=== PATIENT | male | born 1950 | race Caucasian/White ===

== ENCOUNTER → 2017-02-03 | Outpatient (CLI) | payer OTHER ==
[~2017-02-03] MED LIST: ASPI81TA28 PO; ATOR10TA88 PO; CALCTAB5 PO; CETI10TA84 PO; FLM4 PO; GLUC250C PO; MULT-506 PO; NAPR1TAB9 PO; OLME1TAB11 PO; OMEG10007 PO; SILD100T PO; [UNRECOGNIZED DRUG - CODE] PO
--- NOTE | 2017-02-03 08:48 | DIAGNOSTIC IMAGING REPORT ---
BILATERAL KNEES, 4 VIEWS EACH CLINICAL HISTORY: Bilateral knee pain. COMPARISON STUDY: Right knee 03/21/2015. Left knee 11/25/2014. FINDINGS: No fracture or dislocation within the right or left knee. Moderate cartilage space narrowing within the medial compartments of the knees with small tricompartmental marginal osteophytes, left greater than right. This has progressed in the interval. No significant knee effusion. Soft tissues are unremarkable. There is also moderate osteoarthritis at the left patellofemoral joint. IMPRESSION: Moderate osteoarthritis within the bilateral knees, left greater than right. This has progressed. Electronically signed by: Demian Pratt M.D. 02/03/2017 8:46 AM Dictated Date/Time: 02/03/2017 8:44 AM
== END | disposition home or self-care (01) ==
LOC: C.RDSM 07:00
PROVIDERS: ATTEND Internal Medicine
DX: M25.561 Pain in right knee (principal); M25.562 Pain in left knee; M17.0 Bilateral primary osteoarthritis of knee

== ENCOUNTER → 2017-03-17 | Outpatient (CLI) | payer OTHER ==
[~2017-03-17] VITALS: Ht 180.3 cm; Wt 127.5 kg
[~2017-03-17] MED LIST changes: +ATOR10TA82 PO; -ATOR10TA88 PO
[2017-03-17 13:36] VITALS: BP 124/79; PULSE 80; Ht 180.3 cm; Wt 127.5 kg
== END | disposition home or self-care (01) ==
LOC: C.NEUR 13:10
PROVIDERS: ATTEND Physician Assistant
DX: G47.33 Obstructive sleep apnea (adult) (pediatric) (principal)

== ENCOUNTER → 2017-04-24 | Outpatient (CLI) | payer OTHER ==
[2017-04-24 11:08] LABS: ESTIMATED AVERAGE GLUCOSE 114 mg/dl; HA1C FLAG Normal (Normal)
[2017-04-24 11:24] LABS: ALT/SGPT 52 U/L (12-78); BLOOD UREA NITROGEN 19 mg/dl (7-18); BUN/CREATININE RATIO 21.2 (10-20); CALCIUM 8.5 mg/dl (8.5-10.1); CARBON DIOXIDE 26 mmol/L (21-32); CHLORIDE 108 mmol/L (98-107); CHOLESTEROL 135 mg/dl (0-200); CHOLESTEROL/HDL RATIO 4.4; CREATININE 0.88 mg/dl (0.60-1.40); GLUCOSE 105 mg/dl (70-99); HDL CHOLESTEROL 31 mg/dl; LDL CHOLESTEROL CALCULATED 56 mg/dl; POTASSIUM 4.6 mmol/L (3.5-5.1); SODIUM 143 mmol/L (136-145); TRIGLYCERIDES 242 mg/dl (0-150); VERY LOW DENSITY LIPOPROT CALC 48 mg/dl
== END | disposition home or self-care (01) ==
LOC: C.LAB1850 09:02
PROVIDERS: ATTEND Family Medicine
DX: Z11.59 Encounter for screening for other viral diseases (principal); I10 Essential (primary) hypertension; E78.5 Hyperlipidemia, unspecified; R73.9 Hyperglycemia, unspecified

== ENCOUNTER → 2017-09-25 | Outpatient (CLI) | payer OTHER ==
[~2017-09-25] VITALS: Ht 180.3 cm; Wt 126.6 kg
[2017-09-25 13:47] VITALS: BP 118/77; PULSE 80; Ht 180.3 cm; Wt 126.6 kg
== END | disposition home or self-care (01) ==
LOC: C.NEUR 13:17
PROVIDERS: ATTEND Physician Assistant
DX: G47.33 Obstructive sleep apnea (adult) (pediatric) (principal)

== ENCOUNTER → 2017-12-01 | Outpatient (CLI) | payer OTHER ==
[2017-12-01 10:18] LABS: HEMOGLOBIN A1C 5.6 % (4.5-5.6)
[2017-12-01 10:32] LABS: ALT/SGPT 55 U/L (12-78); BLOOD UREA NITROGEN 15 mg/dl (7-18); CALCIUM 8.7 mg/dl (8.5-10.1); CARBON DIOXIDE 26 mmol/L (21-32); GLUCOSE 101 mg/dl (70-99); POTASSIUM 3.9 mmol/L (3.5-5.1); SODIUM 137 mmol/L (136-145)
[2017-12-01 10:34] LABS: CHOLESTEROL 125 mg/dl (0-200); LDL CHOLESTEROL CALCULATED 57 mg/dl
== END ==
LOC: C.LAB1850 08:38
PROVIDERS: ATTEND Family Medicine
DX: I10 Essential (primary) hypertension (principal); E78.5 Hyperlipidemia, unspecified; R73.9 Hyperglycemia, unspecified

== ENCOUNTER → 2018-06-17 | Outpatient (CLI) | payer OTHER ==
[~2018-06-17] MED LIST changes: -ASPI81TA28 PO; +BNC/20 PO; +CALC-393 PO; -CALCTAB5 PO; -FLM4 PO; -OLME1TAB11 PO
[2018-06-17 09:51] LABS: HEMOGLOBIN A1C 5.8 % (4.5-5.6)
[2018-06-17 09:59] LABS: ALBUMIN 3.6 gm/dl (3.4-5.0); ALKALINE PHOSPHATASE 55 U/L (45-117); ALT/SGPT 43 U/L (12-78); AST/SGOT 15 U/L (15-37); BLOOD UREA NITROGEN 12 mg/dl (7-18); CALCIUM 8.3 mg/dl (8.5-10.1); CARBON DIOXIDE 27 mmol/L (21-32); CHOLESTEROL 123 mg/dl (0-200); CREATININE 0.82 mg/dl (0.60-1.40); GLUCOSE 103 mg/dl (70-99); LDL CHOLESTEROL CALCULATED 61 mg/dl; POTASSIUM 4.3 mmol/L (3.5-5.1); SODIUM 140 mmol/L (136-145); TOTAL PROTEIN 6.8 gm/dl (6.4-8.2)
== END | disposition home or self-care (01) ==
LOC: C.LAB1850 07:57
PROVIDERS: ATTEND Family Medicine
DX: Z00.00 Encounter for general adult medical examination without abnormal findings (principal); Z12.5 Encounter for screening for malignant neoplasm of prostate; I10 Essential (primary) hypertension; E78.5 Hyperlipidemia, unspecified; R73.9 Hyperglycemia, unspecified

== ENCOUNTER 2025-09-14 09:09 | Observation (INO) ==
[2025-09-14] MEDS: ONDANSETRON INJ 2 MG/ML 2 ML VIAL IV STA (09:48)
[2025-09-14] MEDS: SODIUM CHLORIDE 0.9% 500 ML IV ONE (09:48)
--- NOTE | 2025-09-14 09:58 | Emergency Department Note ---
Impression & Plan Stroke-like symptoms, Dizziness, Nausea ED Provider Note HISTORY OF PRESENT ILLNESS: Patient is a 75-year-old male presenting with gait instability and dizziness. Patient reports that he woke up at 6 AM to go to the bathroom this morning and had significant difficulties ambulating secondary to feeling unsteady on his feet. He states he had chills and felt like he could not walk. He states he also woke up and had blurred vision. He reports that he has significant fuzziness to his entire visual field. He reports he went to bed last night without any symptoms at 2100. He is not on any anticoagulation or antiplatelet therapy. Denies any chest pain or shortness of breath. He reports he is significantly nauseous this morning with the symptoms and has had multiple episodes of dry heaving. Denies any abdominal pain. ROS: as above PHYSICAL EXAM: Constitutional: Patient appears in no acute distress. HENT: Head: Normocephalic and atraumatic. Eyes: EOMI, PERRL. Patient noted to have bilateral rotary nystagmus on examination. Mouth/Throat: Mucous membranes moist. Neck: Trachea midline. Neck supple. Cardiovascular: RRR, No murmurs, rubs or gallops. Intact distal pulses. Pulmonary/Chest: No respiratory distress. Breath sounds clear and equal bilaterally. No wheezes or rales. Abdominal: Abdomen soft, no tenderness, rebound or guarding. Musculoskeletal: No edema, tenderness or deformity noted. Skin: Warm and dry. No rash, erythema, pallor or cyanosis Psychiatric: Appropriate mood and affect for situation. Neurological: Alert and keenly responsive. Facies symmetric. Able to raise eyebrows, close eyes, smile, puff mouth, stick out tongue, move tongue left and right and raise palate symmetrically. Able to shrug shoulders. PERRLA. SILT to forehead below eye and at jawline. Can hear soft noise bilaterally. Good finger to nose. Strength 5/5 in bilateral upper and lower extremities. SILT throughout bilateral upper and lower extremities. MDM: - Vitals signs showed hypertension - History obtained via patient. History as above. - Chronic conditions affecting care: HTN; HLD; BPH - Differential diagnoses include, but are not limited to: CVA; intracranial hemorrhage; ACS; electrolyte abnormality; dysrhythmia - Order placed for continuous cardiac monitoring. At this time, monitor showed rate of 64 bpm with normal sinus rhythm, per my interpretation. - External medical records reviewed. Wellness visit note dated 08/11/2025 was reviewed. Patient was seen for his regular wellness exam. He was started on MiraLAX at the visit. - EKG image interpreted by myself showed normal sinus rhythm. Rate 61 bpm. QT 460. No acute ischemic changes. Noted to have a right bundle branch block. - Laboratory workup interpreted by myself showed normal WBC; normal PT/INR; stable electrolytes; normal troponin; normal AST/ALT - CXR image reviewed by myself is negative for pneumonia, per my interpretation. - Viral respiratory panel negative - CT head wo contrast negative for acute pathology - CTA head negative for acute pathology. 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 - Patient given 500 cc NS and 4 mg IV zofran in ER. - On reassessment, the patient is still feeling nauseous. I did stand him at bedside and he started to fall to the left after standing for about 10 seconds. He does continue to have rotary nystagmus on examination. I ordered 0.5 mg of IV Ativan. I do still have some significant concerns about a potential posterior circulation stroke at this point. Given the patient's persistent symptoms, will admit for further workup. Patient given 324 mg of aspirin and 300 mg of Plavix. - Discussion was had with case advocate about patient's case and need for admission - Hospitalist, Dr. Singh, consulted for admission at 13:11. - [facility] ASSESSMENT AND PLAN: Diagnosis: Strokelike symptoms; dizziness; nausea Plan: Admit Past Med/Surg History Problem List (Updated 09/14/25 @ 13:12 by Sheryl Delarosa MD) Nausea (Acute) Dizziness (Acute) Stroke-like symptoms (Acute) Encounter for pre-operative examination Constipation Abdominal bloating Sciatic nerve pain Pyriformis syndrome Lumbar spondylosis Lumbosacral radiculitis Upper airway cough syndrome Sinus congestion Chronic cough Lumbar radiculopathy History of colon polyps Family history of colon cancer Lumbar strain Severe obstructive sleep apnea cpap Post-nasal drip Arthritis (Chronic) Benign localized hyperplasia of prostate with urinary obstruction (Chronic) Chronic back pain (Chronic) Erectile dysfunction (Chronic) Hyperglycemia (Chronic) Hyperlipidemia (Chronic) Lumbar back pain (Chronic) strain of quadratus lumborum Nocturia (Chronic) Obesity (Chronic) Pes planus (Chronic) 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) Hypertension (Chronic) Medical History HTN (hypertension) Sensorineural hearing loss (SNHL) of both ears HLD (hyperlipidemia) BPH (benign prostatic hyperplasia) Arthritis Lumbar spondylosis Constipation Pyriformis syndrome Environmental and seasonal allergies History of colon polyps Lumbar radiculopathy Chronic cough Sleep apnea History of COVID-19 Small bowel intussusception Surgical History Hx of colonoscopy Hx of wisdom tooth extraction S/P cataract surgery History of tooth extraction Hx of appendectomy Hx of cholecystectomy Family History Mother Uremia Primary malignant neoplasm of bone marrow Father Colorectal cancer Hypertension Lung cancer Unknown No problems noted. Denies family history of Ovarian cancer Prostate cancer Myocardial infarction Adverse anesthesia outcome Breast cancer Bleeding disorder Social History Smoking Status: Never smoker Second Hand Exposure: No; Do You Dip or Chew Tobacco: No; Hx Alcohol Use: Yes Alcohol type: beer and wine Alcohol Intake Frequency: Monthly or Less Hx Substance Use: No Preferred Language: Lao Communication Ability: Effective Visual Impairment: No Limitations Hearing Ability: Normal Audiovisual Aids Technician Required: No Beliefs That Will Affect Care: None marital status: Current Living Situation: Spouse current occupational status: employed and retired current occupation: PT substitue teacher How many Children do You have: 2 Feels Safe at Home: Yes Childhood Exposure to Second-Hand Smoke: Yes Diet: regular Diet Comment: regular caffeine: Yes during the past year weight has: remained stable Dental Care, Regularly: Yes Physical Activity Frequency: 1-2 Times per Week Seatbelt Use: always Sunscreen Use: Yes Do you think of yourself as: straight/heterosexual Assistive Devices: CPAP and Glasses Allergies Allergies Allergy/AdvReac Type Severity Reaction Status Date / Time No Known Drug Allergies Allergy Verified 08/31/25 08:48 Home Meds Home Medications Medication Instructions Recorded Confirmed calcium carbonate (Calcium 600) 600 mg PO QAM 06/29/19 09/14/25 psoifnbcovs-[id number]-eyd C-Mn 500 2 cap PO QAM 06/29/19 09/14/25 mg-400 mg capsule (Glucosamine Chondroitin Maximum Strength) meloxicam 15 mg tablet 15 mg PO QAM 06/29/19 09/14/25 multivitamin,wl-hlnq-cqmajxcj 1 tab PO QAM 06/29/19 09/14/25 (Complete Multivitamin tablet) sodium hyaluronate (viscosup) 10 10 mg intra-articular .every 6 01/01/21 09/14/25 mg/mL(mw 2.4-3.6 months million)intra-articular syringe (Euflexxa) diclofenac sodium 1 % topical gel 2 g topical QID PRN Pain 01/10/22 09/14/25 (Voltaren Arthritis Pain) diphenhydramine HCl 25 mg tablet 50 mg PO Q4H PRN Sleep 09/03/22 09/14/25 omega-3 fatty acids 1,000 mg 1,400 mg PO QAM 05/06/23 09/14/25 capsule (Fish Oil Concentrate) Saccharomyces boulardii 250 mg 250 mg PO BID 06/18/23 09/14/25 capsule (Daily Probiotic (S. boulardii)) acetaminophen 500 mg capsule 1,000 mg PO ONCE PRN Pain 07/13/24 09/14/25 lidocaine patch 07/13/24 08/31/25 fluticasone propionate 50 2 spray intranasal DAILY 06/24/25 09/14/25 mcg/actuation nasal spray,suspension Previous Rx's Medication Instructions Recorded azelastine 137 mcg (0.1 %) nasal 1 spray intranasal BID #30 mL 02/12/24 spray albuterol sulfate 90 mcg/actuation 2 inh inhalation QID PRN shortness 05/03/24 aerosol inhaler of breath or wheezing #8.5 grams cetirizine 10 mg tablet 20 mg (2 x 10 mg) PO DAILY #90 tabs 07/13/24 atorvastatin 10 mg tablet 10 mg PO DAILY #90 tabs 11/19/24 sildenafil 100 mg tablet 100 mg PO DAILY PRN sexual 02/09/25 activity #20 tabs losartan 50 mg tablet See Rx Instructions .Route 02/11/25 .COMPLEX #90 tabs fenofibrate 54 mg tablet 54 mg PO DAILY #90 tabs 06/15/25 montelukast 10 mg tablet 10 mg PO DAILY #90 tabs 07/26/25 (Singulair) polyethylene glycol 3350 17 gram 17 g PO DAILY #30 ea 08/11/25 oral powder packet (Miralax) urea-lactic acid-propylene glycol 10 ml topical DAILY #10 mL 08/11/25 topical solution (Kerasal Fungal Nail Renewal topical solution) amlodipine 10 mg tablet See Rx Instructions .Route 09/12/25 .COMPLEX #90 tabs Results & Data (ED) Vital Signs Vital Signs - 24 hr 09/14/25 09:22 09/14/25 09:22 09/14/25 09:56 Temperature 36.4 C L Temperature Source Oral Pulse Rate 63 62 Pulse Rate [Apical] 63 Pulse Rhythm Regular Pulse Rhythm [Apical] Regular Pulse Strength [Apical] Normal Respiratory Rate 18 18 20 Respiratory Effort / Characteristics Non-Labored Spontaneous Non-Labored Spontaneous Respiratory Depth Normal Normal Respiratory Pattern Regular Regular Blood Pressure 151/89 H Blood Pressure [Right Arm] 151/89 H Blood Pressure Mean 109 Blood Pressure Mean [Right Arm] 109 Blood Pressure Position Lying Blood Pressure Position [Right Arm] Lying Pulse Oximetry 94 94 95 Oxygen Delivery Method Room Air Room Air Room Air Sepsis Recent Fever Within 48 Hours No Sepsis New/Unexplained Change in Mental Status N/A Sepsis Action Taken by Nursing No Action Required 09/14/25 10:20 09/14/25 11:04 09/14/25 13:00 Temperature Temperature Source Pulse Rate 64 Pulse Rate [Apical] 63 65 Pulse Rhythm Pulse Rhythm [Apical] Regular Regular Pulse Strength [Apical] Normal Normal Respiratory Rate 21 16 Respiratory Effort / Characteristics Non-Labored Spontaneous Non-Labored Spontaneous Respiratory Depth Normal Normal Respiratory Pattern Regular Regular Blood Pressure Blood Pressure [Right Arm] 150/85 H 142/79 H Blood Pressure Mean Blood Pressure Mean [Right Arm] 106 100 Blood Pressure Position Blood Pressure Position [Right Arm] Sitting Pulse Oximetry 94 94 Oxygen Delivery Method Room Air Room Air Sepsis Recent Fever Within 48 Hours Sepsis New/Unexplained Change in Mental Status Sepsis Action Taken by Nursing Laboratory Data 09/14/25 09:15 09/14/25 09:15 Lab Results 09/14/25 09/14/25 09/14/25 Range/Units 09:15 09:21 11:25 WBC 7.16 (4.8-10.8) K/ul RBC 5.03 (4.70-6.10) M/uL Hgb 15.9 (14.0-18.0) g/dl Hct 44.4 (42.0-52.0) % MCV 88.3 (80.0-100.0) fL MCH 31.6 (25.0-34.0) pg MCHC 35.8 (32.0-36.0) g/dL RDW Std Deviation 40.6 (36.4-46.3) fL RDW Coeff of Lauryn 12.5 (11.5-14.5) % Plt Count 166 (130-400) K/uL MPV 9.5 (9.4-12.4) fL Immature Gran % (Auto) 0.3 % Neut % (Auto) 73.4 % Lymph % (Auto) 17.9 % [place] % (Auto) 7.5 % Eos % (Auto) 0.6 % Baso % (Auto) 0.3 % Neut # (Auto) 5.26 (1.40-6.50) K/uL Lymph # (Auto) 1.28 (1.20-3.40) K/uL [place] # (Auto) 0.54 (0.11-0.59) K/uL Eos # (Auto) 0.04 (0.00-0.50) K/uL Baso # (Auto) 0.02 (0.00-0.20) K/uL Immature Gran # (Auto) 0.02 (0.01-0.20) K/uL PT 11.1 (9.0-12.0) Seconds INR 1.1 (0.9-1.1) Sodium 138 (136-145) mmol/L Potassium 4.1 (3.5-5.1) mmol/L Chloride 107 (98-107) mmol/L Carbon Dioxide 23 (21-32) mmol/L Anion Gap 8 (3-11) BUN 15 (6-23) mg/dl Creatinine 0.75 (0.6-1.4) mg/dl Est Cr Clr Drug Dosing 116.0 ml/min eGFR 94.11 BUN/Creatinine Ratio 20.0 (10-20) Glucose 146 H (70-99(Fasting)) mg/dl Calcium 8.9 (8.6-10.3) mg/dl Magnesium 2.1 (1.7-2.4) mg/dl Total Bilirubin 0.5 (0.2-1.0) mg/dl AST 20 (13-39) U/L ALT 28 (7-52) U/L Alkaline Phosphatase 45 (34-104) U/L Troponin I High Sens 4.2 (0-20) pg/ml Total Protein 7.0 (6.0-8.3) gm/dl Albumin 4.2 (3.4-5.0) gm/dl Globulin 2.8 (2.5-4.0) gm/dl Albumin/Globulin Ratio 1.5 (0.9-2) Urine Color Yellow Urine Appearance Cloudy A (Clear) Urine pH 8.5 H (4.5-7.5) Ur Specific [place] > 1.045 H (1.000-1.030) Urine Protein Negative (Negative) Urine Glucose (UA) Negative (Negative) Urine Ketones Negative (Negative) Urine Blood Negative (Negative) Urine Nitrite Negative (Negative) Urine Bilirubin Negative (Negative) Urine Urobilinogen Negative (Negative) Ur Leukocyte Esterase Negative (Negative) Urine WBC (Auto) 0-5 (0-5) /hpf Urine RBC (Auto) 0-2 (0-2) /hpf U Hyaline Cast (Auto) 0-2 (0-2) /lpf U Epithel Cells (Auto) 0-2 (0-2) /hpf Urine Bacteria (Auto) None Seen (None Seen) Urine Comment Adenovirus (PCR) Not Detected (NotDetected) B. pertussis DNA (PCR) Not Detected (NotDetected) B.parapertussis DNA PCR Not Detected (NotDetected) C. pneumoniae DNA (PCR) Not Detected (NotDetected) Coronavirus OC43 (PCR) Not Detected (NotDetected) Coronavirus HKU1 (PCR) Not Detected (NotDetected) Coronavirus 229E (PCR) Not Detected (NotDetected) SARS-CoV-2 (PCR) Not Detected (NotDetected) Coronavirus NL63 (PCR) Not Detected (NotDetected) Human Metapneumovir PCR Not Detected (NotDetected) Influenza Type A (PCR) Not Detected (NotDetected) Influenza Type B (PCR) Not Detected (NotDetected) M. pneumoniae (PCR) Not Detected (NotDetected) Parainfluenza 1 (PCR) Not Detected (NotDetected) Parainfluenza 2 (PCR) Not Detected (NotDetected) Parainfluenza 3 (PCR) Not Detected (NotDetected) Parainfluenza 4 (PCR) Not Detected (NotDetected) RSV (PCR) Not Detected (NotDetected) Entero/Rhino (PCR) Not Detected (NotDetected) Administered Medications Discontinued Medications Sodium Chloride (Nss) 500 mls @ 999 mls/hr IV .Q31M ONE Stop: 09/14/25 10:03 Last Infusion: 09/14/25 10:21 Dose: Infused Documented By: priya Admin: 09/14/25 09:48 Dose: 999 mls/hr Documented By: priya Ioversol (Optiray 320 125ml) 112 ml IV ONCE ONE Stop: 09/14/25 10:45 Last Admin: 09/14/25 10:44 Dose: 112 ml Documented By: DOMENICO Lorazepam (Lorazepam 1 Mg/1 Ml Syr Ed Inj Use) 0.5 mg IV ONE STA Stop: 09/14/25 12:31 Last Admin: 09/14/25 12:49 Dose: 0.5 mg Documented By: NATO Ondansetron HCl (Ondansetron Inj 2 Mg/Ml 2 Ml Vial) 4 mg IV NOW STA Stop: 09/14/25 09:34 Last Admin: 09/14/25 09:48 Dose: 4 mg Documented By: [facility] [place] Imaging Data Radiologist's Impression: Head CT 09/14/25 09:33 CT head/brain wo con CLINICAL HISTORY: 75 years-old Male with gait instability; blurred vision. Acute blurry vision TECHNIQUE: Multiple axial CT images of the head were obtained without contrast. A dose lowering technique was utilized adhering to the principles of ALARA. COMPARISON: CTA head of same day FINDINGS: No acute intracranial hemorrhage, midline shift, intracranial mass, hydrocephalus, territorial ischemia or abnormal extra-axial collection. Involutional changes with white matter hypodensities suggestive of chronic microvascular ischemic disease. Partially empty sella. The calvarium is intact. Minimal mucosal thickening of the ethmoid air cells. Mastoid air cells are clear. Unremarkable soft tissues and orbits. Prior bilateral lens repair. IMPRESSION: No acute intracranial abnormality. ACT 112: Negative or not required by law. The above report was generated using voice recognition software. It may contain grammatical, syntax or spelling errors. Electronically signed by: Fidel Friedman M.D. 09/14/2025 11:15 AM Head CTA 09/14/25 09:33 CTA ANGIOGRAPHY OF THE HEAD CLINICAL HISTORY: Gait instability; blurred vision. COMPARISON STUDY: Head CT June 02, 2018. TECHNIQUE: Helical axial images of the head were obtained following uneventful intravenous administration of 112 cc of Optiray. Sagittal and coronal reconstructions were viewed as well as maximal intensity projections on an independent 3-D workstation. Automated exposure control was utilized for the study. A dose lowering technique was utilized adhering to the principles of ALARA. FINDINGS: Please note that the head CT will be reported separately. No acute intracranial hemorrhage, midline shift or mass effect is present. Ventricular system is unremarkable. Basal cisterns are patent. There are no extra-axial collections. The bilateral M1, M2, A1 and A2 segments are patent. There is moderate calcified plaque within the cavernous carotids without stenosis. No intracranial vessel occlusion is identified. There is no intracranial aneurysm. persistence of the left posterior cerebral artery is incidentally noted. The left vertebral artery ends in the posterior inferior cerebellar artery. The right vertebral artery is dominant. IMPRESSION: No large vessel occlusion. No intracranial aneurysm. ACT 112: Negative or not required by law. Electronically signed by: Tian Jamil M.D. 09/14/2025 11:07 AM Neck CTA 09/14/25 09:33 CT angio neck with con CLINICAL HISTORY: gait instability; blurred vision. TECHNIQUE: Following the IV administration of 112 of Optiray, CT angiogram of the neck was performed from the aortic arch to the skull base. Images are reviewed in the axial, sagittal, and coronal planes. 3-D MIPS images are created and assessed. IV contrast was administered without complication. All measurements were calculated based on NASCET criteria. A dose lowering technique was utilized adhering to the principles of ALARA. CT DOSE: 1324.34 mGy.cm COMPARISON STUDY: None FINDINGS: Right vertebral artery is dominant. Left vertebral artery terminates in PICA, anatomic variant. No significant narrowing or occlusion seen at the common or internal carotid or vertebral arteries bilaterally. There is a mild fusiform aneurysm measuring 6 mm diameter distally at the left internal carotid artery at the cavernous portion. There are diffuse cervical spine degenerative changes. IMPRESSION: 1. No significant arterial narrowing or occlusion seen at the neck. 2. 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 Follow-up CTA suggested in one year. ACT 112: Positive. There are findings on this exam that require communication between the performing entity and the patient following Patient Test Result Information Act ([place] Act 112) guidelines. The above report was generated using voice recognition software. It may contain grammatical, syntax or spelling errors. Electronically signed by: Balwinder Mckeon M.D. 09/14/2025 11:10 AM Chest X-Ray 09/14/25 09:35 XR chest 1V portable CLINICAL HISTORY: weakness COMPARISON STUDY: 10/22/2023 FINDINGS: There is mild cardiomegaly without pulmonary vascular congestion. No consolidation or pleural effusion seen. No pneumothorax. IMPRESSION: No acute findings. ACT 112: Negative or not required by law. Electronically signed by: Balwinder Mckeon M.D. 09/14/2025 10:00 AM Discharge Plan Visit Data Chief Complaint: Illness Stated Complaint: ILLNESS ED Provider: Sheryl Delarosa Discharge Problem: Stroke-like symptoms, Dizziness, Nausea Patient Disposition: Admitted As Inpatient Condition: Fair Forms Stand Alone Forms: [employer] [facility] Prescriptions Prescriptions: No Action cetirizine 10 mg tablet 20 mg PO DAILY Qty: 90 2RF Patient Comments: prn - allergies acetaminophen 500 mg capsule 1,000 mg PO ONCE PRN (Reason: Pain) (DME) lidocaine patch 0 .Route .MEDSUPPLY atorvastatin 10 mg tablet 10 mg PO DAILY Qty: 90 3RF sildenafil 100 mg tablet 100 mg PO DAILY PRN (Reason: sexual activity) Qty: 20 5RF Rx Instructions: Take 1 tablet 1 hour before intercourse. Max. dose 100mg in 24 hrs losartan 50 mg tablet See Rx Instructions .ROUTE .COMPLEX Qty: 90 3RF Dose Instruction: TAKE 1 TABLET DAILY Rx Instructions: TAKE 1 TABLET DAILY fenofibrate 54 mg tablet 54 mg PO DAILY Qty: 90 3RF montelukast [Singulair] 10 mg tablet 10 mg PO DAILY Qty: 90 5RF Patient Comments: hs amlodipine 10 mg tablet See Rx Instructions .ROUTE .COMPLEX Qty: 90 3RF Dose Instruction: TAKE 1 TABLET DAILY Rx Instructions: TAKE 1 TABLET DAILY meloxicam 15 mg tablet 15 mg PO QAM Patient Comments: not taking Complete Multivitamin tablet 1 tab PO QAM [id number]-[id number]-[id number] C-Mn [Glucosamine Chondroitin MaxStr] 500-400 mg capsule 2 cap PO QAM calcium carbonate [Calcium 600] 600 mg calcium (1,500 mg) tablet 600 mg PO QAM diphenhydramine HCl 25 mg tablet 50 mg PO Q4H PRN (Reason: Sleep) omega-3 fatty acids [Fish Oil Concentrate] 1,000 mg capsule 1,400 mg PO QAM Euflexxa 10 mg/mL(mw 2.4 -3.6 million) syringe 10 mg intra-articular .every 6 months diclofenac sodium [Voltaren Arthritis Pain] 1 % gel 2 g topical QID PRN (Reason: Pain) Rx Instructions: apply to single elbow, wrist or hand; for hand includes palm/fingers/back of hand Saccharomyces boulardii [Daily Probiotic (S. boulardii)] 250 mg capsule 250 mg PO BID azelastine 137 mcg (0.1 %) aerosol,spray 1 spray intranasal BID Qty: 30 2RF Patient Comments: qam Rx Instructions: administer into each nostril polyethylene glycol 3350 [Miralax] 17 gram powder in packet 17 g PO DAILY Qty: 30 0RF Kerasal Fungal Nail Renewal Solution 10 ml topical DAILY Qty: 10 0RF fluticasone propionate 50 mcg/actuation spray,suspension 2 spray intranasal DAILY Rx Instructions: administer into each nostril albuterol sulfate 90 mcg/actuation HFA aerosol inhaler 2 inh inhalation QID PRN (Reason: shortness of breath or wheezing) Qty: 8.5 3RF Referrals Referrals: Celsa Alvarado MD [Primary Care Provider] -
--- NOTE | 2025-09-14 10:02 | XRay Report ---
XR chest 1V portable CLINICAL HISTORY: weakness COMPARISON STUDY: 10/22/2023 FINDINGS: There is mild cardiomegaly without pulmonary vascular congestion. No consolidation or pleur al effusion seen. No pneumothorax. IMPRESSION: No acute findings. ACT 112: Negative or not required by law. Electronically signed by: Balwinder Mckeon M.D. 09/14/2025 10:00 AM
[2025-09-14 10:08] LABS: Hematocrit (blood only) 44.4 % (42.0-52.0); Hemoglobin 15.9 g/dl (14.0-18.0); Immature Granulocytes # (auto) 0.02 K/uL (0.01-0.20); Immature Granulocytes % (auto) 0.3 %; Mean Corpuscular Hemoglobin 31.6 pg (25.0-34.0); Mean Corpuscular Volume 88.3 fL (80.0-100.0); Platelet Count 166 K/uL (130-400); RDW Standard Deviation 40.6 fL (36.4-46.3); Red Blood Count 5.03 M/uL (4.70-6.10); White Blood Count 7.16 K/ul (4.8-10.8)
[2025-09-14 10:24] LABS: Alanine Aminotransferase 28.0 U/L (7-52); Albumin Globulin Ratio 1.5 (0.9-2); Albumin Level 4.2 gm/dl (3.4-5.0); Alkaline Phosphatase 45.0 U/L (34-104); Anion Gap 8.0 (3-11); Bilirubin,Total 0.5 mg/dl (0.2-1.0); Blood Urea Nitrogen 15.0 mg/dl (6-23); Calcium 8.9 mg/dl (8.6-10.3); Carbon Dioxide 23.0 mmol/L (21-32); Chloride 107.0 mmol/L (98-107); Creatinine Clr Calc Pharmacy 116.0 ml/min; Globulin 2.8 gm/dl (2.5-4.0); Glucose 146.0 mg/dl (70-99(Fasting)); Magnesium 2.1 mg/dl (1.7-2.4); Potassium 4.1 mmol/L (3.5-5.1); Sodium 138.0 mmol/L (136-145); Total Protein 7.0 gm/dl (6.0-8.3)
[2025-09-14 10:30] LABS: INR 1.1 (0.9-1.1); Prothrombin Time 11.1 Seconds (9.0-12.0)
[2025-09-14] MEDS: OPTIRAY 320 125ml IV ONE (10:44)
[2025-09-14 10:49] LABS: Chlamydia pneumoniae PCR Not Detected (NotDetected); Coronavirus 229E PCR Not Detected (NotDetected); Coronavirus CoV-2 (COVID19)PCR Not Detected (NotDetected); Coronavirus HKU1 PCR Not Detected (NotDetected); Coronavirus NL63 PCR Not Detected (NotDetected); Coronavirus OC43PCR Not Detected (NotDetected); Human Metapneumovirus PCR Not Detected (NotDetected); Parainfluenza Virus 1 PCR Not Detected (NotDetected); Parainfluenza Virus 2 PCR Not Detected (NotDetected); Parainfluenza Virus 3 PCR Not Detected (NotDetected); Parainfluenza Virus 4 PCR Not Detected (NotDetected); Respiratory Syncytial VirusPCR Not Detected (NotDetected); Rhinovirus/Enterovirus PCR Not Detected (NotDetected)
--- NOTE | 2025-09-14 11:08 | CT Scan Report ---
CTA ANGIOGRAPHY OF THE HEAD CLINICAL HISTORY: Gait instability; blurred vision. COMPARISON STUDY: Head CT June 02, 2018. TECHNIQUE: Helical axial images of the head were obtained following uneventful intravenous administr ation of 112 cc of Optiray. Sagittal and coronal reconstructions were viewed as well as maximal inten sity projections on an independent 3-D workstation. Automated exposure control was utilized for the study. A dose lowering technique was utilized adhering to the principles of ALARA. FINDINGS: Please note that the head CT will be reported separately. No acute intracranial hemorrhage, midline shift or mass effect is present. Ventricular system is unremarkable. Basal cisterns are herrera nt. There are no extra-axial collections. The bilateral M1, M2, A1 and A2 segments are patent. There is moderate calcified plaque within the cavernous carotids without stenosis. No intracranial vessel o cclusion is identified. There is no intracranial aneurysm. persistence of the left posterior ce rebral artery is incidentally noted. The left vertebral artery ends in the posterior inferior cerebel lar artery. The right vertebral artery is dominant. IMPRESSION: No large vessel occlusion. No intracranial aneurysm. ACT 112: Negative or not required by law. Electronically signed by: Tian Jamil M.D. 09/14/2025 11:07 AM
--- NOTE | 2025-09-14 11:12 | CT Scan Report ---
CT angio neck with con CLINICAL HISTORY: gait instability; blurred vision. TECHNIQUE: Following the IV administration of 112 of Optiray, CT angiogram of the neck was performed from the aortic arch to the skull base. Images are reviewed in the axial, sagittal, and coronal plane s. 3-D MIPS images are created and assessed. IV contrast was administered without complication. All m easurements were calculated based on NASCET criteria. A dose lowering technique was utilized adherin g to the principles of ALARA. CT DOSE: 1324.34 mGy.cm COMPARISON STUDY: None FINDINGS: Right vertebral artery is dominant. Left vertebral artery terminates in PICA, anatomic vari ant. No significant narrowing or occlusion seen at the common or internal carotid or vertebral arteri es bilaterally. There is a mild fusiform aneurysm measuring 6 mm diameter distally at the left internet salesperson al carotid artery at the cavernous portion. There are diffuse cervical spine degenerative changes. IMPRESSION: 1. No significant arterial narrowing or occlusion seen at the neck. 2. 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 Follow-up CTA suggested in one year. ACT 112: Positive. There are findings on this exam that require communication between the performing entity and the patient following Patient Test Result Information Act ([place] Act 112) guidelines. The above report was generated using voice recognition software. It may contain grammatical, syntax o r spelling errors. Electronically signed by: Balwinder Mckeon M.D. 09/14/2025 11:10 AM
--- NOTE | 2025-09-14 11:17 | CT Scan Report ---
CT head/brain wo con CLINICAL HISTORY: 75 years-old Male with gait instability; blurred vision. Acute blurry vision TECHNIQUE: Multiple axial CT images of the head were obtained without contrast. A dose lowering tech nique was utilized adhering to the principles of ALARA. COMPARISON: CTA head of same day FINDINGS: No acute intracranial hemorrhage, midline shift, intracranial mass, hydrocephalus, territorial ischem ia or abnormal extra-axial collection. Involutional changes with white matter hypodensities suggestiv e of chronic microvascular ischemic disease. Partially empty sella. The calvarium is intact. Minimal mucosal thickening of the ethmoid air cells. Mastoid air cells are clear. Unremarkable soft tissues and orbits. Prior bilateral lens repair. IMPRESSION: No acute intracranial abnormality. ACT 112: Negative or not required by law. The above report was generated using voice recognition software. It may contain grammatical, syntax o r spelling errors. Electronically signed by: Fidel Friedman M.D. 09/14/2025 11:15 AM
[2025-09-14 11:45] LABS: Appearance Urine Cloudy (Clear); Bacteria Urine Automated None Seen (None Seen); Cast Urine Automated 0-2 /lpf (0-2); Epithelial Cell Urine Auto 0-2 /hpf (0-2); Glucose Urine UA Negative (Negative); RBC Urine Automated 0-2 /hpf (0-2); WBC Urine Automated 0-5 /hpf (0-5)
[2025-09-14] MEDS: LORazepam 1 MG/1 ML SYR ED Inj Use IV STA (12:49)
--- NOTE | 2025-09-14 13:11 | History & Physical Report ---
Date of Service September 14, 2025 Assessment & Plan Admission and Anticipated Discharge Date Admission Date: Blurry vision/ dizziness in a 75 yo male with hypertension, hyperlipidemiia, and hyperglycemia Patient admitted for concern of stroke like symptoms. Ordered MRI brain. This was negative, patient now with unilateral vision changes after initally having bilateral. But this is improving. WIll continue to monitor overnight. Will consult neuro. Hypertnesion WIll resume home meds tomorrow Dyslipidemia resume statin, kunal likely need to increase this. History of Present Illness Chief Complaint: dizziness Primary Care Provider: Celsa Alvarado MD 75 yo male reports waing up with dizziness, and blurry vision. Patient notcied when he awoke that the pictures of his wall were moving. This was acompanied by feeling unsteady on his feet. Patient reports that his entire vision was blurry. This was acommpanied by nausea and dry heaving Patient came to the ED and admission was called with MRI pending. BUt later in the stay he reported only his right eye improved. Aagin later in the night both eyes improved. These symptoms lasted about 12 hours Allergies Allergy/AdvReac Type Severity Reaction Status Date / Time No Known Drug Allergies Allergy Verified 08/31/25 08:48 Home Medications Medication Instructions Recorded Confirmed Type calcium carbonate (Calcium 600) 600 mg PO QAM 06/29/19 09/14/25 History asfkkssducp-wyiflniai-aew C-Mn 500 2 cap PO QAM 06/29/19 09/14/25 History mg-400 mg capsule (Glucosamine Chondroitin Maximum Strength) multivitamin,[id number] 1 tab PO QAM 06/29/19 09/14/25 History (Complete Multivitamin tablet) sodium hyaluronate (viscosup) 10 10 mg intra-articular .every 6 01/01/21 09/14/25 History mg/mL(mw 2.4-3.6 months million)intra-articular syringe (Euflexxa) diclofenac sodium 1 % topical gel 2 g topical QID PRN Pain 01/10/22 09/14/25 History (Voltaren Arthritis Pain) diphenhydramine HCl 25 mg tablet 50 mg PO Q4H PRN Sleep 09/03/22 09/14/25 History omega-3 fatty acids 1,000 mg 1,400 mg PO QAM 05/06/23 09/14/25 History capsule (Fish Oil Concentrate) Saccharomyces boulardii 250 mg 250 mg PO BID 06/18/23 09/14/25 History capsule (Daily Probiotic (S. boulardii)) azelastine 137 mcg (0.1 %) nasal 1 spray intranasal BID #30 mL 02/12/24 09/14/25 Rx spray albuterol sulfate 90 mcg/actuation 2 inh inhalation QID PRN shortness 05/03/24 09/14/25 Rx aerosol inhaler of breath or wheezing #8.5 grams acetaminophen 500 mg capsule 1,000 mg PO ONCE PRN Pain 07/13/24 09/14/25 History cetirizine 10 mg tablet 20 mg (2 x 10 mg) PO DAILY #90 tabs 07/13/24 09/14/25 Rx lidocaine patch 07/13/24 08/31/25 History sildenafil 100 mg tablet 100 mg PO DAILY PRN sexual 02/09/25 09/14/25 Rx activity #20 tabs losartan 50 mg tablet See Rx Instructions .Route 02/11/25 09/14/25 Rx .COMPLEX #90 tabs fenofibrate 54 mg tablet 54 mg PO DAILY #90 tabs 06/15/25 09/14/25 Rx fluticasone propionate 50 2 spray intranasal DAILY 06/24/25 09/14/25 History mcg/actuation nasal spray,suspension montelukast 10 mg tablet 10 mg PO DAILY #90 tabs 07/26/25 09/14/25 Rx (Singulair) polyethylene glycol 3350 17 gram 17 g PO DAILY #30 ea 08/11/25 09/14/25 Rx oral powder packet (Miralax) urea-lactic acid-propylene glycol 10 ml topical DAILY #10 mL 08/11/25 09/14/25 Rx topical solution (Kerasal Fungal Nail Renewal topical solution) amlodipine 10 mg tablet See Rx Instructions .Route 09/12/25 09/14/25 Rx .COMPLEX #90 tabs aspirin 81 mg tablet,delayed 81 mg PO DAILY #30 tabs 09/15/25 Rx release atorvastatin 40 mg tablet 40 mg PO DAILY #30 tabs 09/15/25 Rx Past Med/Surg History Problem List (Updated 09/16/25 @ 00:08 by Background Daemon) Nausea (Acute) Dizziness (Acute) Stroke-like symptoms (Acute) Constipation Abdominal bloating Sciatic nerve pain Pyriformis syndrome Lumbar spondylosis Lumbosacral radiculitis Upper airway cough syndrome Sinus congestion Chronic cough Lumbar radiculopathy History of colon polyps Family history of colon cancer Lumbar strain Severe obstructive sleep apnea cpap Post-nasal drip Arthritis (Chronic) Benign localized hyperplasia of prostate with urinary obstruction (Chronic) Chronic back pain (Chronic) Erectile dysfunction (Chronic) Hyperglycemia (Chronic) Hyperlipidemia (Chronic) Lumbar back pain (Chronic) strain of quadratus lumborum Nocturia (Chronic) Obesity (Chronic) Pes planus (Chronic) 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) Hypertension (Chronic) Medical History HTN (hypertension) Sensorineural hearing loss (SNHL) of both ears HLD (hyperlipidemia) BPH (benign prostatic hyperplasia) Arthritis Lumbar spondylosis Constipation Pyriformis syndrome Environmental and seasonal allergies History of colon polyps Lumbar radiculopathy Chronic cough prn inhaler, rare use Sleep apnea CPAP History of COVID-19 02/2022- sore throat, night sweats, fever, no hospitalization, no current issues Small bowel intussusception with surgical repair - 1949 Surgical History Hx of colonoscopy Hx of wisdom tooth extraction S/P cataract surgery BOTH EYES 05/2023 History of tooth extraction Hx of appendectomy removed during bowel procedure Hx of cholecystectomy Family History Mother Uremia Primary malignant neoplasm of bone marrow Father Colorectal cancer Hypertension Lung cancer Unknown No problems noted. Denies family history of Ovarian cancer Prostate cancer Myocardial infarction Adverse anesthesia outcome Breast cancer Bleeding disorder Social History Smoking Status: Never smoker Second Hand Exposure: No; Do You Dip or Chew Tobacco: No; Hx Alcohol Use: Yes Alcohol type: beer and wine Alcohol Intake Frequency: Monthly or Less Hx Substance Use: No Preferred Language: [place]ian Communication Ability: Effective Visual Impairment: No Limitations Hearing Ability: Normal Freelance Photographer Required: No Beliefs That Will Affect Care: None marital status: Current Living Situation: Spouse current occupational status: employed and retired current occupation: PT substitue teacher How many Children do You have: 2 Feels Safe at Home: Yes Childhood Exposure to Second-Hand Smoke: Yes Diet: regular Diet Comment: regular caffeine: Yes during the past year weight has: remained stable Dental Care, Regularly: Yes Physical Activity Frequency: 1-2 Times per Week Seatbelt Use: always Sunscreen Use: Yes Do you think of yourself as: straight/heterosexual Assistive Devices: None Review of Systems Constitutional: no fever and no body aches Eyes: + blind spots Ear, Nose, Mouth, Throat: no ear pain Respiratory: no cough Cardiovascular: no chest pain Gastrointestinal: no abdominal pain Genitourinary: no dysuria Musculoskeletal: no back pain Integumentary: no acne Neurologic: no gait abnormality Psychiatric: no behavioral changes Endocrine: no fatigue Hematologic / Lymphatic: no easy bleeding Allergy / Immunological: no GI upset with certain foods Physical Exam Constitutional: WD/WN, vitals as above Eyes: PERRL, conjunctivae normal, anicteric sclerae ENMT: external ear and nose normal, oropharynx normal Neck: trachea midline, no thyromegaly Respiratory: normal respiratory effort, lungs clear to auscultation Cardiovascular: RRR, no murmur, no edema Gastrointestinal (Abdomen): normal bowel sounds, soft, nontender, no hepatosplenomegaly Musculoskeletal: no cyanosis or clubbing, extremities motor strength 5/5 Skin: no rashes, warm and dry Neurologic: PERRL, EOMI, accommodation nl, no face palsy, no dysarthria Psychiatric: A+Ox3, euthymic affect Lymphatic: no cervical or axillary lymphadenopathy Results & Data Results & Data Vital Signs (Past 12 Hours) Vital Signs Temp Pulse Pulse Resp BP BP Pulse Ox 09/14/25 13:00 65 16 142/79 H 94 09/14/25 11:04 63 21 150/85 H 94 09/14/25 10:20 64 09/14/25 09:56 62 20 95 09/14/25 09:22 36.4 C L 63 18 151/89 H 94 09/14/25 09:22 63 18 151/89 H 94 O2 Del Method 09/14/25 13:00 Room Air 09/14/25 11:04 Room Air 09/14/25 10:20 09/14/25 09:56 Room Air 09/14/25 09:22 Room Air 09/14/25 09:22 Room Air PG Care Time/CCT Total # of Minutes Spent Total Time Spent with Patient: Total time spent is greater than 50% in coordination of care (as documented) at patient's floor/unit and/or counseling patient: Coding Level of Care Code 86766 INT INP/OBS CARE 3/75MIN
[2025-09-14] MEDS ORDERED: PHARMACIST DISCHARGE MED REC CONSULT PRN (13:19)
[2025-09-14] MEDS ORDERED: ONDANSETRON INJ 2 MG/ML 2 ML VIAL IV PRN (13:26)
[2025-09-14] MEDS ORDERED: ACETAMINOPHEN 325 MG TAB PO PRN (13:26)
--- NOTE | 2025-09-14 13:29 | Electrocardiogram Report ---
Test Reason : Blood Pressure : */* mmHG Vent. Rate : 63 BPM Atrial Rate : 63 BPM P-R Int : 194 ms QRS Dur : 150 ms QT Int : 460 ms P-R-T Axes : 30 -7 26 degrees QTcB Int : 470 ms Normal sinus rhythm Right bundle branch block Abnormal ECG When compared with ECG of 02-Jun-2018 07:03, Premature ventricular complexes are no longer Present Confirmed by David Mccracken ([id number]) on 09/14/2025 1:28:59 PM Referred By: Confirmed By: David Mccracken
--- NOTE | 2025-09-14 13:47 | Magnetic Resonance Report ---
MR brain wo con CLINICAL HISTORY: dizziness; rotary nystagmus COMPARISON STUDY: Head CT earlier today FINDINGS: There is mild motion artifact. No restricted diffusion seen to suggest acute infarction. No mass effect, midline shift, or hydrocephalus. There are a few scattered small foci of increased FLAI R signal intensity in the periventricular white matter which is nonspecific but usually represents ch ronic small vessel ischemic change. There is mild diffuse cerebral and cerebellar volume loss. IMPRESSION: No evidence of acute infarction. ACT 112: Negative or not required by law. Electronically signed by: Balwinder Mckeon M.D. 09/14/2025 1:46 PM
[2025-09-14] MEDS: ASPIRIN CHEW 324 MG PO STA (14:02)
[2025-09-14] MEDS: CLOPIDOGREL BISULFATE 300 MG TAB PO STA (14:02)
[2025-09-14] MEDS ORDERED: diphenhydrAMINE Capsule 25 MG CAP PO PRN (14:46)
[2025-09-14] MEDS: AZELASTINE HCL 0.1% NASAL 200 SPRAYS/27,400 MCG BTL NAE SCH (19:46)
[2025-09-14 23:48] VITALS: RESP 18
[2025-09-15 03:53] VITALS: O2SAT 94
[2025-09-15 06:28] LABS: Hematocrit (blood only) 42.2 % (42.0-52.0); Hemoglobin 14.4 g/dl (14.0-18.0); Immature Granulocytes # (auto) 0.02 K/uL (0.01-0.20); Immature Granulocytes % (auto) 0.3 %; Mean Corpuscular Hemoglobin 30.2 pg (25.0-34.0); Mean Corpuscular Volume 88.5 fL (80.0-100.0); Platelet Count 169 K/uL (130-400); RDW Standard Deviation 41.5 fL (36.4-46.3); Red Blood Count 4.77 M/uL (4.70-6.10); White Blood Count 7.29 K/ul (4.8-10.8)
[2025-09-15 06:46] LABS: Anion Gap 7 (3-11); Blood Urea Nitrogen 14 mg/dl (6-23); Calcium 8.6 mg/dl (8.6-10.3); Carbon Dioxide 25 mmol/L (21-32); Chloride 108 mmol/L (98-107); Cholesterol 145 mg/dl (0-200); Creatinine Clr Calc Pharmacy 104.0 ml/min; Glucose 103 mg/dl (70-99(Fasting)); HDL Cholesterol 36 mg/dl; Potassium 3.7 mmol/L (3.5-5.1); Sodium 140 mmol/L (136-145); Triglycerides 184 mg/dl (0-150)
[2025-09-15 07:32] LABS: Hemoglobin A1C 5.7 % (4.5-5.6)
[2025-09-15] MEDS: POLYETHYLENE (MIRALAX) 17 GM PACK PO SCH (07:44)
[2025-09-15] MEDS: ATORVASTATIN 10 MG TAB PO SCH (07:45)
[2025-09-15] MEDS: LOSARTAN POTASSIUM 50 MG TAB PO SCH (07:45)
[2025-09-15] MEDS: OMEGA-3 (PURIFIED FISH OIL) 1 GM CAP PO SCH (07:45)
[2025-09-15] MEDS: CEROVITE ADV FORMULA TAB PO SCH (07:45)
[2025-09-15] MEDS: FENOFIBRATE NANOCRYSTALLIZED 48 MG TABLET PO SCH (07:45)
[2025-09-15] MEDS: MONTELUKAST SODIUM 10 MG TABLET PO SCH (07:46)
--- NOTE | 2025-09-15 08:41 | Neurology Consultation ---
Date of Consultation September 15, 2025 Assessment & Plan (1) Stroke-like symptoms: Plan 75-year-old male presented with dizziness, nystagmus and gait instability. He was given 300 mg of Plavix and 324 mg of aspirin in the emergency room. Patient has history of vertigo in the past but this time this episode was much different associated with nausea, difficulty to ambulate with dizziness. The symptoms resolved within 24 hours and patient denies any dizziness or any other symptoms. Most likely transient ischemic attack since MRI of the brain is negative for acute intracranial pathology MRI of the brain did not show any acute intracranial pathology MRI of the lumbar spine showed multilevel degenerative changes. Mild canal stenosis and mild bilateral neuroforaminal stenosis. Head CT negative for acute intracranial pathology CT angiogram of the head did not show large vessel occlusion or intracranial aneurysm. CT angiogram of the neck did not show hemodynamically significant stenosis. 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 Follow-up CT angiogram suggested in 1 year Chest x-ray showed mild cardiomegaly without pulmonary vascular congestion. No pneumothorax or pleural effusion. Strict control of blood pressure and blood glucose. Patient hemoglobin A1c is 5.7. Lipid panel showed high triglyceride 184. Continue aspirin and high intensity statin for secondary stroke prevention 2D echo to evaluate for left ventricular ejection fraction rule out thrombus EKG showed normal sinus rhythm with right bundle branch block. Neurochecks every 4 hours. Telemetry to evaluate for arrhythmia. Consult PT/OT/Speech Therapy for evaluation Continue home medications. Continue medical management per primary team. DVT Prophylaxis Case management input regarding discharge planning Plan discussed in detail with the patient and also with the nursing staff Plan also diabetes scheduled the primary hospitalist Dr. Satnam Singh Time Spent (min) 60 minutes Comment Total time includes patient contact, chart review, counseling, note preparation *Disclaimer: This note was generated using [email or web address] dictation software. Any typographical errors are unintentional and attributed to errors in voice recognition. If there are any areas of the note that do not make sense, please contact me for clarification. Telehealth Consultation Telehealth Information Telehealth Information: I performed this visit using a real-time telehealth connection between my location and the patients originating location ([facility]). After connecting through interactive tele-video, patient was identified by name and date of and/or wristband check.Patient (or authorized healthcare small business representative) was informed that this was a telemedicine visit and it was being conducted confidentially over secure lines. My office door was closed and no one else was present in the room with me.Patient (or authorized healthcare small business representative) provided consent to proceed with the visit, expressed an understanding of privacy and security of the telemedicine visit, and gave permission to have a hospital small business representative in the room in order to assist with the visit and to conduct portions of the visit, as needed. I informed the patient (or authorized healthcare small business representative) that I reviewed their record and presented the opportunity for them to ask any questions regarding the visit today. The patient agreed to participate. History of Present Illness Reason for Consultation: Stroke like symptoms Requesting Physician: Satnam Singh Attending Physician: Satnam Singh History of Present Illness 75-year-old male with medical history significant for hypertension, hyperlipidemia, BPH, arthritis, lumbar spondylosis, and prior history of vertigo with last episode 5 years ago presented to the emergency room because of dizziness associated with nausea, blurred vision, and difficulty with ambulation. The patient symptoms started around 6 AM 09/14/2025 any woke up in the morning. He denies any facial droop, focal weakness, focal paresthesia, chest pain, abdominal pain, double vision, loss of vision, recent illness, or problems with speech or swallowing. The patient symptoms persisted so he decided to come to the emergency room for further evaluation. In the emergency room, head CT was done which was negative for acute intracranial pathology. CT angiogram of the head and neck did not show hemodynamically significant stenosis. EKG showed normal sinus rhythm. MRI of the brain was done yesterday which was negative for acute intracranial pathology. MRI of the lumbar spine did not show any significant degenerative changes. Per patient, his last vertigo was 5 years ago in which was once a month different from the current symptoms. The patient's symptoms resolved this morning and exam was able to go to the restroom without any problem. He also denies any nausea, blurred vision, at the time of the rounds. He was given aspirin 325 mg and Plavix 300 mg in the emergency room. The patient is not on ASA at home. Allergies Allergy/AdvReac Type Severity Reaction Status Date / Time No Known Drug Allergies Allergy Verified 08/31/25 08:48 Home Medications Medication Instructions Recorded Confirmed Type calcium carbonate (Calcium 600) 600 mg PO QAM 06/29/19 09/14/25 History [id number] C-Mn 500 2 cap PO QAM 06/29/19 09/14/25 History mg-400 mg capsule (Glucosamine Chondroitin Maximum Strength) meloxicam 15 mg tablet 15 mg PO QAM 06/29/19 09/14/25 History multivitamin,im-xekd-znlqmhhi 1 tab PO QAM 06/29/19 09/14/25 History (Complete Multivitamin tablet) sodium hyaluronate (viscosup) 10 10 mg intra-articular .every 6 01/01/21 09/14/25 History mg/mL(mw 2.4-3.6 months million)intra-articular syringe (Euflexxa) diclofenac sodium 1 % topical gel 2 g topical QID PRN Pain 01/10/22 09/14/25 History (Voltaren Arthritis Pain) diphenhydramine HCl 25 mg tablet 50 mg PO Q4H PRN Sleep 09/03/22 09/14/25 History omega-3 fatty acids 1,000 mg 1,400 mg PO QAM 05/06/23 09/14/25 History capsule (Fish Oil Concentrate) Saccharomyces boulardii 250 mg 250 mg PO BID 06/18/23 09/14/25 History capsule (Daily Probiotic (S. boulardii)) azelastine 137 mcg (0.1 %) nasal 1 spray intranasal BID #30 mL 02/12/24 09/14/25 Rx spray albuterol sulfate 90 mcg/actuation 2 inh inhalation QID PRN shortness 05/03/24 09/14/25 Rx aerosol inhaler of breath or wheezing #8.5 grams acetaminophen 500 mg capsule 1,000 mg PO ONCE PRN Pain 07/13/24 09/14/25 History cetirizine 10 mg tablet 20 mg (2 x 10 mg) PO DAILY #90 tabs 07/13/24 09/14/25 Rx lidocaine patch 07/13/24 08/31/25 History atorvastatin 10 mg tablet 10 mg PO DAILY #90 tabs 11/19/24 09/14/25 Rx sildenafil 100 mg tablet 100 mg PO DAILY PRN sexual 02/09/25 09/14/25 Rx activity #20 tabs losartan 50 mg tablet See Rx Instructions .Route 02/11/25 09/14/25 Rx .COMPLEX #90 tabs fenofibrate 54 mg tablet 54 mg PO DAILY #90 tabs 06/15/25 09/14/25 Rx fluticasone propionate 50 2 spray intranasal DAILY 06/24/25 09/14/25 History mcg/actuation nasal spray,suspension montelukast 10 mg tablet 10 mg PO DAILY #90 tabs 07/26/25 09/14/25 Rx (Singulair) polyethylene glycol 3350 17 gram 17 g PO DAILY #30 ea 08/11/25 09/14/25 Rx oral powder packet (Miralax) urea-lactic acid-propylene glycol 10 ml topical DAILY #10 mL 08/11/25 09/14/25 Rx topical solution (Kerasal Fungal Nail Renewal topical solution) amlodipine 10 mg tablet See Rx Instructions .Route 09/12/25 09/14/25 Rx .COMPLEX #90 tabs Patient History Medical History HTN (hypertension) Sensorineural hearing loss (SNHL) of both ears HLD (hyperlipidemia) BPH (benign prostatic hyperplasia) Arthritis Lumbar spondylosis Constipation Pyriformis syndrome Environmental and seasonal allergies History of colon polyps Lumbar radiculopathy Chronic cough prn inhaler, rare use Sleep apnea CPAP History of COVID-19 02/2022- sore throat, night sweats, fever, no hospitalization, no current issues Small bowel intussusception with surgical repair - 1949 Surgical History Hx of colonoscopy Hx of wisdom tooth extraction S/P cataract surgery BOTH EYES 05/2023 History of tooth extraction Hx of appendectomy removed during bowel procedure Hx of cholecystectomy Family History Mother Uremia Primary malignant neoplasm of bone marrow Father Colorectal cancer Hypertension Lung cancer Unknown No problems noted. Denies family history of Ovarian cancer Prostate cancer Myocardial infarction Adverse anesthesia outcome Breast cancer Bleeding disorder Social History Smoking Status: Never smoker Second Hand Exposure: No; Do You Dip or Chew Tobacco: No; Hx Alcohol Use: Yes Alcohol type: beer and wine Alcohol Intake Frequency: Monthly or Less Hx Substance Use: No Preferred Language: Japanese Communication Ability: Effective Visual Impairment: No Limitations Hearing Ability: Normal Stretch Box Tender Required: No Beliefs That Will Affect Care: None marital status: Current Living Situation: Spouse current occupational status: employed and retired current occupation: PT substitue teacher How many Children do You have: 2 Other Information That Helps Us Care for You: Yes Feels Safe at Home: Yes Safety Concerns: Feels Safe At This Time Childhood Exposure to Second-Hand Smoke: Yes Diet: regular Diet Comment: regular caffeine: Yes during the past year weight has: remained stable Dental Care, Regularly: Yes Physical Activity Frequency: 1-2 Times per Week Seatbelt Use: always Sunscreen Use: Yes Do you think of yourself as: straight/heterosexual Assistive Devices: BiPap and Glasses Review of Systems Constitutional symptoms, eyes, ears, nose, throat, cardiovascular, respiratory, gastrointestinal, genitourinary, musculoskeletal, endocrine, hematologic, and psychiatric review of systems are negative about the chief complaint, except as detailed in the present illness. Physical Exam Neuro Exam Mentation and Language Alert and oriented to person, place, time and situation. There is no apparent deficit of comprehensionfluent speech without word-finding difficulty or dysarthria. The affect appears appropriate. Cranial Nerves CN 11-X11 intact except CN VIII- hearing defict bilaterally. Motor There is appropriate bulk throughout. Tone is normal. There is no resting tremor or other extraneous movements. Strength is graded 5/5 throughout the upper and lower extremities bilaterally. Sensation Intact to light touch, bilaterally Coordination There is no dysmetria with finger nose finger Gait and Station Deferred due to patient safety reasons. NIHSS Level of consciousness: Alert = 0 Current month and age: Answers both correctly = 0 Open and close eyes/junior net developer release hand: Obeys both correctly = 0 Best gaze: Normal = 0. Visual field testing: Partial hemianopia = 0 Facial paresis: Normal symmetric movement =0 . Motor function left arm: - 0 . Motor function right arm: Normal = 0 Motor function left le Motor function right leg: Normal = 0 Limb ataxia: Present in two limbs = 0 Best language: Mild to moderate aphasia = 0. Dysarthria: 0 Extinction and inattention: Normal = 0. Total score 0 Results & Data Vital Signs (Past 12 Hours) Vital Signs Temp Pulse Pulse Resp BP Pulse Ox O2 Del Method 09/15/25 07:32 36.8 C 75 18 163/81 H 94 Room Air 09/15/25 03:52 36.5 C 63 18 134/82 94 BiPAP 09/15/25 02:15 13 09/14/25 23:47 36.4 C L 67 18 143/81 H 95 BiPAP 09/14/25 21:53 56 L 15 93 09/14/25 21:43 69 FiO2 09/15/25 07:32 09/15/25 03:52 09/15/25 02:15 21 09/14/25 23:47 09/14/25 21:53 21 09/14/25 21:43 Laboratory Results Lab Results 09/14/25 09/14/25 09/14/25 Range/Units 09:15 09:21 11:25 WBC 7.16 (4.8-10.8) K/ul RBC 5.03 (4.70-6.10) M/uL Hgb 15.9 (14.0-18.0) g/dl Hct 44.4 (42.0-52.0) % MCV 88.3 (80.0-100.0) fL MCH 31.6 (25.0-34.0) pg MCHC 35.8 (32.0-36.0) g/dL RDW Std Deviation 40.6 (36.4-46.3) fL RDW Coeff of Lauryn 12.5 (11.5-14.5) % Plt Count 166 (130-400) K/uL MPV 9.5 (9.4-12.4) fL Immature Gran % (Auto) 0.3 % Neut % (Auto) 73.4 % Lymph % (Auto) 17.9 % [place] % (Auto) 7.5 % Eos % (Auto) 0.6 % Baso % (Auto) 0.3 % Neut # (Auto) 5.26 (1.40-6.50) K/uL Lymph # (Auto) 1.28 (1.20-3.40) K/uL [place] # (Auto) 0.54 (0.11-0.59) K/uL Eos # (Auto) 0.04 (0.00-0.50) K/uL Baso # (Auto) 0.02 (0.00-0.20) K/uL Immature Gran # (Auto) 0.02 (0.01-0.20) K/uL PT 11.1 (9.0-12.0) Seconds INR 1.1 (0.9-1.1) Sodium 138 (136-145) mmol/L Potassium 4.1 (3.5-5.1) mmol/L Chloride 107 (98-107) mmol/L Carbon Dioxide 23 (21-32) mmol/L Anion Gap 8 (3-11) BUN 15 (6-23) mg/dl Creatinine 0.75 (0.6-1.4) mg/dl Est Cr Clr Drug Dosing 116.0 ml/min eGFR 94.11 BUN/Creatinine Ratio 20.0 (10-20) Glucose 146 H (70-99(Fasting)) mg/dl Calcium 8.9 (8.6-10.3) mg/dl Magnesium 2.1 (1.7-2.4) mg/dl Total Bilirubin 0.5 (0.2-1.0) mg/dl AST 20 (13-39) U/L ALT 28 (7-52) U/L Alkaline Phosphatase 45 (34-104) U/L Troponin I High Sens 4.2 (0-20) pg/ml Total Protein 7.0 (6.0-8.3) gm/dl Albumin 4.2 (3.4-5.0) gm/dl Globulin 2.8 (2.5-4.0) gm/dl Albumin/Globulin Ratio 1.5 (0.9-2) Urine Color Yellow Urine Appearance Cloudy A (Clear) Urine pH 8.5 H (4.5-7.5) Ur Specific [place] > 1.045 H (1.000-1.030) Urine Protein Negative (Negative) Urine Glucose (UA) Negative (Negative) Urine Ketones Negative (Negative) Urine Blood Negative (Negative) Urine Nitrite Negative (Negative) Urine Bilirubin Negative (Negative) Urine Urobilinogen Negative (Negative) Ur Leukocyte Esterase Negative (Negative) Urine WBC (Auto) 0-5 (0-5) /hpf Urine RBC (Auto) 0-2 (0-2) /hpf U Hyaline Cast (Auto) 0-2 (0-2) /lpf U Epithel Cells (Auto) 0-2 (0-2) /hpf Urine Bacteria (Auto) None Seen (None Seen) Urine Comment Adenovirus (PCR) Not Detected (NotDetected) B. pertussis DNA (PCR) Not Detected (NotDetected) B.parapertussis DNA PCR Not Detected (NotDetected) C. pneumoniae DNA (PCR) Not Detected (NotDetected) Coronavirus OC43 (PCR) Not Detected (NotDetected) Coronavirus HKU1 (PCR) Not Detected (NotDetected) Coronavirus 229E (PCR) Not Detected (NotDetected) SARS-CoV-2 (PCR) Not Detected (NotDetected) Coronavirus NL63 (PCR) Not Detected (NotDetected) Human Metapneumovir PCR Not Detected (NotDetected) Influenza Type A (PCR) Not Detected (NotDetected) Influenza Type B (PCR) Not Detected (NotDetected) M. pneumoniae (PCR) Not Detected (NotDetected) Parainfluenza 1 (PCR) Not Detected (NotDetected) Parainfluenza 2 (PCR) Not Detected (NotDetected) Parainfluenza 3 (PCR) Not Detected (NotDetected) Parainfluenza 4 (PCR) Not Detected (NotDetected) RSV (PCR) Not Detected (NotDetected) Entero/Rhino (PCR) Not Detected (NotDetected) Diagnostic Findings MR brain wo con CLINICAL HISTORY: dizziness; rotary nystagmus COMPARISON STUDY: Head CT earlier today FINDINGS: There is mild motion artifact. No restricted diffusion seen to suggest acute infarction. No mass effect, midline shift, or hydrocephalus. There are a few scattered small foci of increased FLAIR signal intensity in the periv entricular white matter which is nonspecific but usually represents chronic small vessel ischemic change. There is mild diffuse cerebral and cerebellar volume loss. IMPRESSION: No evidence of acute infarction. ACT 112: Negative or not required by law. Electronically signed by: Balwinder Mckeon M.D. 09/14/2025 1:46 PM MR lumbar spine wo con CLINICAL HISTORY: M47.816 - Spondylosis without myelopathy or radiculopathy... TECHNIQUE: Multiplanar sequences through the lumbar spine were obtained, without intravenous contrast. Comparison: Comparison is made to lumbar spine radiographs 01/27/2024 FINDINGS: The alignment is anatomical. L1-L2: No significant abnormality. L2-L3: No significant abnormality. L3-L4: Broad-based posterior disc bulge is seen with mild canal and neuroforaminal stenosis. L4-L5: Broad-based posterior disc bulge is seen with mild bilateral neuroforaminal stenosis. L5-S1: Facet arthropathy results in mild bilateral foraminal stenosis. The spinal ligaments are intact, without evidence of disruption or abnormal signal intensity. The spinal cord is normal in signal intensity and there is no evidence of cord contusion. There is no evidence of an extradural, intradural, extramedullary or intramedullary lesion. Visualized soft tissues are normal. IMPRESSION: Multilevel degenerative changes with up to mild canal stenosis and mild bilateral neuroforaminal stenosis. Head CT 09/14/25 09:33 CT head/brain wo con CLINICAL HISTORY: 75 years-old Male with gait instability; blurred vision. Acute blurry vision TECHNIQUE: Multiple axial CT images of the head were obtained without contrast. A dose lowering technique was utilized adhering to the principles of ALARA. COMPARISON: CTA head of same day FINDINGS: No acute intracranial hemorrhage, midline shift, intracranial mass, hydrocephalus, territorial ischemia or abnormal extra-axial collection. Involutional changes with white matter hypodensities suggestive of chronic microvascular ischemic disease. Partially empty sella. The calvarium is intact. Minimal mucosal thickening of the ethmoid air cells. Mastoid air cells are clear. Unremarkable soft tissues and orbits. Prior bilateral lens repair. IMPRESSION: No acute intracranial abnormality. ACT 112: Negative or not required by law. The above report was generated using voice recognition software. It may contain grammatical, syntax or spelling errors. Electronically signed by: Fidel Friedman M.D. 09/14/2025 11:15 AM Head CTA 09/14/25 09:33 CTA ANGIOGRAPHY OF THE HEAD CLINICAL HISTORY: Gait instability; blurred vision. COMPARISON STUDY: Head CT June 02, 2018. TECHNIQUE: Helical axial images of the head were obtained following uneventful intravenous administration of 112 cc of Optiray. Sagittal and coronal reconstructions were viewed as well as maximal intensity projections on an independent 3-D workstation. Automated exposure control was utilized for the study. A dose lowering technique was utilized adhering to the principles of ALARA. FINDINGS: Please note that the head CT will be reported separately. No acute intracranial hemorrhage, midline shift or mass effect is present. Ventricular system is unremarkable. Basal cisterns are patent. There are no extra-axial collections. The bilateral M1, M2, A1 and A2 segments are patent. There is moderate calcified plaque within the cavernous carotids without stenosis. No intracranial vessel occlusion is identified. There is no intracranial aneurysm. persistence of the left posterior cerebral artery is incidentally noted. The left vertebral artery ends in the posterior inferior cerebellar artery. The right vertebral artery is dominant. IMPRESSION: No large vessel occlusion. No intracranial aneurysm. ACT 112: Negative or not required by law. Electronically signed by: Tian Jamil M.D. 09/14/2025 11:07 AM Neck CTA 09/14/25 09:33 CT angio neck with con CLINICAL HISTORY: gait instability; blurred vision. TECHNIQUE: Following the IV administration of 112 of Optiray, CT angiogram of the neck was performed from the aortic arch to the skull base. Images are reviewed in the axial, sagittal, and coronal planes. 3-D MIPS images are created and assessed. IV contrast was administered without complication. All measurements were calculated based on NASCET criteria. A dose lowering technique was utilized adhering to the principles of ALARA. CT DOSE: 1324.34 mGy.cm COMPARISON STUDY: None FINDINGS: Right vertebral artery is dominant. Left vertebral artery terminates in PICA, anatomic variant. No significant narrowing or occlusion seen at the common or internal carotid or vertebral arteries bilaterally. There is a mild fusiform aneurysm measuring 6 mm diameter distally at the left internal carotid artery at the cavernous portion. There are diffuse cervical spine degenerative changes. IMPRESSION: 1. No significant arterial narrowing or occlusion seen at the neck. 2. 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 Follow-up CTA suggested in one year. ACT 112: Positive. There are findings on this exam that require communication between the performing entity and the patient following Patient Test Result Information Act ([place] Act 112) guidelines. The above report was generated using voice recognition software. It may contain grammatical, syntax or spelling errors. Electronically signed by: Balwinder Mckeon M.D. 09/14/2025 11:10 AM Chest X-Ray 09/14/25 09:35 XR chest 1V portable CLINICAL HISTORY: weakness COMPARISON STUDY: 10/22/2023 FINDINGS: There is mild cardiomegaly without pulmonary vascular congestion. No consolidation or pleural effusion seen. No pneumothorax. IMPRESSION: No acute findings. ACT 112: Negative or not required by law. Electronically signed by: Balwinder Mckeon M.D. 09/14/2025 10:00 AM Medications Administered Administered Medications Discontinued Medications Sodium Chloride (Nss) 500 mls @ 999 mls/hr IV .Q31M ONE Stop: 09/14/25 10:03 Last Infusion: 09/14/25 10:21 Dose: Infused Documented By: priya Admin: 09/14/25 09:48 Dose: 999 mls/hr Documented By: priya Ioversol (Optiray 320 125ml) 112 ml IV ONCE ONE Stop: 09/14/25 10:45 Last Admin: 09/14/25 10:44 Dose: 112 ml Documented By: DOMENICO Lorazepam (Lorazepam 1 Mg/1 Ml Syr Ed Inj Use) 0.5 mg IV ONE STA Stop: 09/14/25 12:31 Last Admin: 09/14/25 12:49 Dose: 0.5 mg Documented By: NATO Ondansetron HCl (Ondansetron Inj 2 Mg/Ml 2 Ml Vial) 4 mg IV NOW STA Stop: 09/14/25 09:34 Last Admin: 09/14/25 09:48 Dose: 4 mg Documented By: priya ECG Additional Comments: EKG showed normal sinus rhythm with right bundle branch block.
--- NOTE | 2025-09-15 10:15 | Communication Note ---
Date of Service: September 15, 2025 By CMS guidelines, a determination that the admission or continued stay is not medically necessary has been made by a member of the UR committee and a ph ysician for this hospital stay, therefore a Code 44 will be completed and the Inpatient admission will be changed to outpatient.
--- NOTE | 2025-09-15 10:28 | Pharmacy Report ---
- Date of Service September 15, 2025 - Pharmacy CVA/TIA Medication Review Medications to Prevent Stroke handout has been added to the patients discharge packet. Antiplatelet(s) * Aspirin 81mg daily Cholesterol * High intensity statin: atorvastatin 40 mg daily DVT Prophylaxis * Pharmacologic and mechanical DVT prophylaxis deferred Therapeutic Anticoagulation * No history of Afib/Aflutter noted Type 2 Diabetes * Patient does not have T2DM
[2025-09-15] MEDS: ASPIRIN 81 MG ECTAB PO SCH (10:47)
[2025-09-15 10:55] VITALS: TEMP 97.7
[2025-09-15 11:50] VITALS: BP 164/89
--- NOTE | 2025-09-15 11:53 | Discharge Summary ---
Discharge Summary Date of Service September 15, 2025 Principal Dx & Hospital Course #1 = Principal Diagnosis (1) Blurry vision, bilateral: Plan Blurry vision/ dizziness in a 75 yo male with hypertension, hyperlipidemia, and hyperglycemia Most likely a Transient ischemic attack. Patient admitted for concern of stroke like symptomsm thankfully imaging negative as noted below. MRI brain: negative After sustaining vision changes, his vision resolved the next morning. The vision changes lasted for various hours but less than 12 hours. Appreciate consult from Neuro. Will discharge on Aspirin. Hypertension resume home meds. Dyslipidemia resume statin but at a higher dose Admission HPI Per Admitting Provider 75 yo male reports waking up with dizziness, and blurry vision. Patient noticed when he awoke that the pictures of his wall were moving. This was accompanied by feeling unsteady on his feet. Patient reports that his entire vision was blurry. This was accompanied by nausea and dry heaving Patient came to the ED and admission was called with MRI pending. But later in the stay he reported only his right eye improved. Again later in the night both eyes improved. These symptoms lasted about 12 hours Discharge Exam Constitutional WD/WN, vitals as above Eyes PERRL, conjunctivae normal, anicteric sclerae ENMT external ear and nose normal, oropharynx normal Neck trachea midline, no thyromegaly Respiratory normal respiratory effort, lungs clear to auscultation Cardiovascular RRR, no murmur, no edema Gastrointestinal (Abdomen) normal bowel sounds, soft, nontender, no hepatosplenomegaly Musculoskeletal no cyanosis or clubbing, extremities motor strength 5/5 Skin no rashes, warm and dry Neurologic PERRL, EOMI, accommodation nl, no face palsy, no dysarthria Psychiatric A+Ox3, euthymic affect Lymphatic no cervical or axillary lymphadenopathy Discharge Plan Discharge Items Patient Disposition: Home - Self-Care Reason For Visit: DIZZINESS/ CONCERN FOR A STROKE Discharge Diagnosis: dizziness/ TIA Condition on Discharge: Fair Activity: Resume your previous activity Non-emergency contact: Primary Care Provider Call non-emergency contact if: you have any medication questions Follow-up/Referrals: Celsa Alvarado MD [Primary Care Provider] - 09/20/25 3:00 pm Diet: Heart Healthy Addtl Attending Provider Instructions: Risk Factors for Stroke: You can reduce your chances of stroke by working with your medical provider to adopt a healthy lifestyle. Some specific ways to lower your chance of stroke are: * If you are a smoker, now is the time to stop smoking cigarettes * If you are diabetic, improve the control of your blood sugars * Avoid excessive amounts of alcohol * Control high blood pressure * Lose weight if you are overweight * Be sure to lead an active lifestyle * Eat a healthy diet low in salt, cholesterol and fat You should know about other risk factors for stroke that you are unable to control. These include: * Age 55 years or older * Male gender * Certain racial groups: , or / * Family History of Stroke, Mini stroke or Heart Attack * Sickle Cell Disease Follow Up: It is important for you to keep your follow up appointments with your medical provider. Who to Call and When: Medical Emergencies: Call 911 immediately if you experience any of the following warning signs and symptoms of Stroke: * Sudden numbness or weakness of the face, arm or leg, especially on one side of the body * Sudden confusion, trouble speaking or understanding * Sudden trouble seeing in one or both eyes * Sudden trouble walking, dizziness, loss of balance or coordination * Sudden severe headache with no cause Do not delay calling 911 if you experience any warning signs or symptoms of a stroke. Delay in seeking medical attention may affect what treatments can be given to you. . Pending Studies at Discharge: No Stand-Alone Forms: [facility], Smoking Cessation, Medications to Prevent Stroke Medications and DC Order Prescriptions: New atorvastatin 40 mg Tablet 40 mg PO DAILY Qty: 30 0RF aspirin 81 mg Tablet,Delayed Release (Dr/Ec) 81 mg PO DAILY Qty: 30 0RF Continued cetirizine 10 mg tablet 20 mg PO DAILY Qty: 90 2RF Patient Comments: prn - allergies acetaminophen 500 mg capsule 1,000 mg PO ONCE PRN (Reason: Pain) (DME) lidocaine patch 0 .Route .MEDSUPPLY sildenafil 100 mg tablet 100 mg PO DAILY PRN (Reason: sexual activity) Qty: 20 5RF Rx Instructions: Take 1 tablet 1 hour before intercourse. Max. dose 100mg in 24 hrs losartan 50 mg tablet See Rx Instructions .ROUTE .COMPLEX Qty: 90 3RF Dose Instruction: TAKE 1 TABLET DAILY Rx Instructions: TAKE 1 TABLET DAILY fenofibrate 54 mg tablet 54 mg PO DAILY Qty: 90 3RF montelukast [Singulair] 10 mg tablet 10 mg PO DAILY Qty: 90 5RF Patient Comments: hs amlodipine 10 mg tablet See Rx Instructions .ROUTE .COMPLEX Qty: 90 3RF Dose Instruction: TAKE 1 TABLET DAILY Rx Instructions: TAKE 1 TABLET DAILY Complete Multivitamin tablet 1 tab PO QAM [id number]-[id number] C-Mn [Glucosamine Chondroitin MaxStr] 500-400 mg capsule 2 cap PO QAM calcium carbonate [Calcium 600] 600 mg calcium (1,500 mg) tablet 600 mg PO QAM diphenhydramine HCl 25 mg tablet 50 mg PO Q4H PRN (Reason: Sleep) omega-3 fatty acids [Fish Oil Concentrate] 1,000 mg capsule 1,400 mg PO QAM Euflexxa 10 mg/mL(mw 2.4 -3.6 million) syringe 10 mg intra-articular .every 6 months diclofenac sodium [Voltaren Arthritis Pain] 1 % gel 2 g topical QID PRN (Reason: Pain) Rx Instructions: apply to single elbow, wrist or hand; for hand includes palm/fingers/back of hand Saccharomyces boulardii [Daily Probiotic (S. boulardii)] 250 mg capsule 250 mg PO BID azelastine 137 mcg (0.1 %) aerosol,spray 1 spray intranasal BID Qty: 30 2RF Patient Comments: qam Rx Instructions: administer into each nostril polyethylene glycol 3350 [Miralax] 17 gram powder in packet 17 g PO DAILY Qty: 30 0RF Kerasal Fungal Nail Renewal Solution 10 ml topical DAILY Qty: 10 0RF fluticasone propionate 50 mcg/actuation spray,suspension 2 spray intranasal DAILY Rx Instructions: administer into each nostril albuterol sulfate 90 mcg/actuation HFA aerosol inhaler 2 inh inhalation QID PRN (Reason: shortness of breath or wheezing) Qty: 8.5 3RF Discontinued atorvastatin 10 mg tablet 10 mg PO DAILY Qty: 90 3RF meloxicam 15 mg tablet 15 mg PO QAM Patient Comments: not taking Discharge Orders: Discharge Order (Routine); Ordered 09/15/25 Ordered By: Satnam Singh Admission Data Admit Date/Time: 09/14/25 13:26 Attending Provider: Satnam Singh Admit Provider: Satnam Singh Primary Care Provider: Celsa Alvarado Other Providers: Satnam Singh; Jim Ocampo; Donal Rodriguez; Kerrie Perrin; Melissa Ariza; Maggie Garvey Other Interventions: Discharge Summary Assessment (RN) Last Done: 09/15/25 12:30 Hospital Stay Data Consultations 09/14/25 12:55 ED Decision to Admit Stat 09/14/25 13:26 Consult Neurology Routine Diagnostic Imagining Performed 09/14/25 09:33 CT head/brain wo con Stat CTA head w con [CT angio head w con] Stat CTA neck with con [CT angio neck with con] Stat 09/14/25 12:51 MRI Brain [MR brain wo con] Stat Pending Results Patient Have Any Pending Studies at Discharge: No Discharge Instructions Given to Patient (Per Discharging Provider) Risk Factors for Stroke: You can reduce your chances of stroke by working with your medical provider to adopt a healthy lifestyle. Some specific ways to lower your chance of stroke are: * If you are a smoker, now is the time to stop smoking cigarettes * If you are diabetic, improve the control of your blood sugars * Avoid excessive amounts of alcohol * Control high blood pressure * Lose weight if you are overweight * Be sure to lead an active lifestyle * Eat a healthy diet low in salt, cholesterol and fat You should know about other risk factors for stroke that you are unable to control. These include: * Age 55 years or older * Male gender * Certain racial groups: , or / * Family History of Stroke, Mini stroke or Heart Attack * Sickle Cell Disease Follow Up: It is important for you to keep your follow up appointments with your medical provider. Who to Call and When: Medical Emergencies: Call 911 immediately if you experience any of the following warning signs and symptoms of Stroke: * Sudden numbness or weakness of the face, arm or leg, especially on one side of the body * Sudden confusion, trouble speaking or understanding * Sudden trouble seeing in one or both eyes * Sudden trouble walking, dizziness, loss of balance or coordination * Sudden severe headache with no cause Do not delay calling 911 if you experience any warning signs or symptoms of a stroke. Delay in seeking medical attention may affect what treatments can be given to you. . Total Time Total Time Spent Total Time Spent (In Minutes): 35 Spent time discussing discharge plan with patient, reviewing meds, writing discharge instructions and evaluating patient. Coding Level of Care Code 58884 INP/OBS DISCH >30 MIN Diagnoses Blurry vision, bilateral H53.8
[2025-09-15] MEDS: STROKE PATIENT DISCHARGE STA (12:23)
[2025-09-15 12:50] VITALS: PULSE 63
--- NOTE | 2025-09-15 13:14 | XCELERA ---
[id number]
[2025-09-16] MEDS ORDERED: ATORVASTATIN 40 MG TAB PO SCH (09:00)
--- NOTE | 2025-09-20 08:17 | Pharmacy Report ---
Pharmacist Stroke Counseling - Date of Service September 20, 2025 - Scope: Pharmacy has been consulted to provide medication discharge counseling for this patient admitted with transient ischemic attack as per the Pharmacist Discharge Counseling for Stroke Patients Protocol. - Medications on Discharge: Home Medications Medication Instructions Recorded Confirmed calcium carbonate (Calcium 600) 600 mg PO QAM 06/29/19 09/14/25 coprelvmwgr-rgmdbjqyg-gvf C-Mn 500 2 cap PO QAM 06/29/19 09/14/25 mg-400 mg capsule (Glucosamine Chondroitin Maximum Strength) multivitamin,ar-cwwu-cxhzqvig 1 tab PO QAM 06/29/19 09/14/25 (Complete Multivitamin tablet) sodium hyaluronate (viscosup) 10 10 mg intra-articular .every 6 01/01/21 09/14/25 mg/mL(mw 2.4-3.6 months million)intra-articular syringe (Euflexxa) diclofenac sodium 1 % topical gel 2 g topical QID PRN Pain 01/10/22 09/14/25 (Voltaren Arthritis Pain) diphenhydramine HCl 25 mg tablet 50 mg PO Q4H PRN Sleep 09/03/22 09/14/25 omega-3 fatty acids 1,000 mg 1,400 mg PO QAM 05/06/23 09/14/25 capsule (Fish Oil Concentrate) Saccharomyces boulardii 250 mg 250 mg PO BID 06/18/23 09/14/25 capsule (Daily Probiotic (S. boulardii)) acetaminophen 500 mg capsule 1,000 mg PO ONCE PRN Pain 07/13/24 09/14/25 lidocaine patch 07/13/24 08/31/25 fluticasone propionate 50 2 spray intranasal DAILY 06/24/25 09/14/25 mcg/actuation nasal spray,suspension New Rx's Medication Instructions Recorded azelastine 137 mcg (0.1 %) nasal 1 spray intranasal BID #30 mL 02/12/24 spray albuterol sulfate 90 mcg/actuation 2 inh inhalation QID PRN shortness 05/03/24 aerosol inhaler of breath or wheezing #8.5 grams cetirizine 10 mg tablet 20 mg (2 x 10 mg) PO DAILY #90 tabs 07/13/24 sildenafil 100 mg tablet 100 mg PO DAILY PRN sexual 02/09/25 activity #20 tabs losartan 50 mg tablet See Rx Instructions .Route 02/11/25 .COMPLEX #90 tabs fenofibrate 54 mg tablet 54 mg PO DAILY #90 tabs 06/15/25 montelukast 10 mg tablet 10 mg PO DAILY #90 tabs 07/26/25 (Singulair) polyethylene glycol 3350 17 gram 17 g PO DAILY #30 ea 08/11/25 oral powder packet (Miralax) urea-lactic acid-propylene glycol 10 ml topical DAILY #10 mL 08/11/25 topical solution (Kerasal Fungal Nail Renewal topical solution) amlodipine 10 mg tablet See Rx Instructions .Route 09/12/25 .COMPLEX #90 tabs aspirin 81 mg tablet,delayed 81 mg PO DAILY #30 tabs 09/15/25 release atorvastatin 40 mg tablet 40 mg PO DAILY #30 tabs 09/15/25 - Action: The above medications, specifically ones for stroke treatment/prophylaxis, have been reviewed in detail with the patient and/or patient help desk representative(s) prior to discharge. This includes indication, common adverse reactions, drug interac tions, and medication administration. Medication counseling has been employed using the teach-back method to ensure understanding. - Outcome: The patient and/or patient help desk representative(s) have demonstrated understanding of the medications. Additional comments: - Counseled on increased Lipitor dose as well as new start Baby Aspirin - Confirmed no longer taking Mobic - Opportunity given to have all questions answered Thank you for allowing pharmacy to be involved in the care of this patient. Please call [phone] with any additional questions
== END 2025-09-15 12:30 | disposition home or self-care (01) | DRG 69 ==
LOC: SUATTDRO → ED 09:09 → 4W 13:26 → INTOOBSV 13:26 → 4W 16:10